=== PATIENT | male | born 1965 | race Caucasian/White ===

== ENCOUNTER 2018-06-24 16:25 | Emergency (ER) | payer BC ==
[2018-06-24 17:12] VITALS: BP 156/94
--- NOTE | 2018-06-24 17:46 | EDM.PDOC ---
ED HPI GENERAL MEDICAL PROBLEM - General Chief Complaint: General Stated Complaint: POSSIBLE STROKE? 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 He says he started giving the presentation and couldn't remember any of the material he had prepared, so he had to just read it from the screen. He now remembers the material better but still doesn't feel back to normal. After the presentation he ate a sandwich but still wasn't feeling quite right so he went home to rest. He slept at home but when his came home she insisted they come to ER. He tells me that his balance felt a little off and still doesn 't feel quite right and he feels like his speech is delayed. He feels like if he had to run he might not be able to due to balance. He takes a daily ASA 325 and took an extra one today. Five years ago he had a very similar event, also during a presentation to other principals, that was worked up in [place] and he was told he had a mini-stroke. His was not present at the presentation today but while in the ER they were able to call a colleague on speaker phone to get more information. The colleague stated that the entire 45 minutes speech seemed somewhat confusing and disorganized and that the patient repeated omer points 3-4 times as though they were the first time. He confirmed that there was no obvious droop or weakness observed and that patient was using both hands on the "clicker" equally well and recognized and called by name several of his colleagues during the presentation. - Related Data Allergies Allergy/AdvReac Type Severity Reaction Status Date / Time SEASONAL Allergy NKDA Uncoded 06/24/18 17:00 Home Meds: Home Meds metFORMIN HCl [Metformin HCl] 500 mg PO DAILY 06/26/15 [History] Aspirin 325 mg PO DAILY 07/04/16 [History] Multivitamin with Minerals [Multiple Vitamin] 1 tab PO DAILY 07/04/16 [History] Simvastatin [Zocor] 10 mg PO BEDTIME 07/04/16 [History] Past Medical History HEENT History: Reports: Impaired Vision Cardiovascular History: Reports: High Cholesterol Respiratory History: Reports: None Gastrointestinal History: Reports: None Musculoskeletal History: Reports: Fracture Neurological History: Reports: TIA Psychiatric History: Reports: None Endocrine/Metabolic History: Reports: Diabetes Mellitus, Type 3c Dermatologic History: Reports: Eczema - Infectious Disease History Infectious Disease History: Reports: Chicken Pox - Past Surgical History HEENT Surgical History: Reports: LASIK Cardiovascular Surgical History: Reports: None Respiratory Surgical History: Reports: None GI Surgical History: Reports: Colonoscopy Neurological Surgical History: Reports: None Dermatological Surgical History: Reports: None Social & Family History - Tobacco Use Smoking Status *Q: Never Smoker Second Hand Smoke Exposure: Yes - Caffeine Use Caffeine Use: Reports: Coffee, Soda - Recreational Drug Use Recreational Drug Use: No ED ROS GENERAL - Review of Systems Review Of Systems: See Below Constitutional: Denies: Fever, Chills, Malaise, Weakness HEENT: Denies: Ear Pain, Throat Swelling, Vision Change Respiratory: Reports: No Symptoms. Denies: Shortness of Breath Cardiovascular: Reports: No Symptoms, Lightheadedness (maybe but more just a vague off balance feeling). Denies: Chest Pain, Syncope Endocrine: Reports: No Symptoms. Denies: High Glucose (he does take metformin for pre-diabetes), Low Glucose GI/Abdominal: Reports: No Symptoms. Denies: Abdominal Pain, Vomiting : Reports: No Symptoms. Denies: Flank Pain Musculoskeletal: Reports: No Symptoms. Denies: Neck Pain, Shoulder Pain, Arm Pain, Back Pain Skin: Reports: No Symptoms. Denies: Cyanosis, Jaundice, Mottled, Pallor, Diaphoresis Neurological: Reports: Confusion, Tingling (slight in right arm), Trouble Speaking (he and his feel like his speech is slow but not slurred). Denies : Dizziness, Headache, Numbness, Seizure, Syncope, Tremors, Difficulty Walking, Weakness, Gait Disturbance Psychiatric: Reports: Confusion. Denies: Agitation, Anxiety Hematologic/Lymphatic: Denies: Easy Bleeding ED EXAM, GENERAL - Physical Exam Exam: See Below Exam Limited By: No Limitations General Appearance: Alert, WD/WN, No Apparent Distress Eye Exam: Bilateral Eye: EOMI, Normal Inspection (with full visual hill intact ), PERRL Ears: Normal External Exam, Hearing Grossly Normal Nose: Normal Inspection, No Blood Throat/Mouth: Normal Inspection, Normal Lips, Normal Teeth, Normal Voice, No Airway Compromise, Other (No facial droop or slurred speech) Head: Atraumatic, Normocephalic Neck: Normal Inspection, Supple, Non-Tender, Full Range of Motion. No: Carotid Bruit Respiratory/Chest: No Respiratory Distress, Lungs Clear, Normal Breath Sounds Cardiovascular: Regular Rate, Rhythm, No Edema, No Gallop, No JVD, No Murmur, No Rub Peripheral Pulses: 2+: Carotid (L), Carotid (R) GI/Abdominal: Normal Bowel Sounds, Soft, Non-Tender, No Organomegaly, No Distention Back Exam: Normal Inspection, Full Range of Motion Extremities: Normal Inspection, Normal Range of Motion, Non-Tender, No Pedal Edema, Other (full 5/5 symmetric strength of UE/LE) Neurological: Alert, Oriented, CN II-XII Intact, Normal Cognition, No Motor/ Sensory Deficits, Other (Negative Romberg; Normal NIH stroke scale: 0) Psychiatric: Normal Affect, Normal Mood Skin Exam: Warm, Dry, Intact, Normal Color, No Rash Course - Vital Signs Last Recorded V/S: Last Vital Signs Temp 96.9 F 06/24/18 16:53 Pulse 87 06/24/18 17:10 Resp 21 H 06/24/18 17:10 BP 156/94 H 06/24/18 17:10 Pulse Ox 96 06/24/18 16:53 - Orders/Labs/Meds Labs: Laboratory Tests 06/24/18 06/24/18 Range/Units 18:20 18:20 WBC 6.6 (5.0-10.0) 10^3/uL RBC 4.60 (4.50-6.00) 10^6/uL Hgb 14.1 (13.0-17.0) g/dL Hct 41.3 (40.0-52.0) % MCV 89.7 (82.0-92.0) fL MCH 30.7 (27.0-31.0) pg MCHC 34.3 (32.0-36.0) g/dL RDW 13.3 (11.5-14.5) % Plt Count 266 (150-300) 10^3/uL MPV 6.9 L (7.4-10.4) fL Neut % (Auto) 72.4 H (50.0-70.0) % Lymph % (Auto) 16.3 L (20.0-40.0) % Crisp % (Auto) 9.4 H (2.0-8.0) % Eos % (Auto) 1.8 (1.0-3.0) % Baso % (Auto) 0.1 (0.0-1.0) % Neut # (Auto) 4.8 (2.5-7.0) 10^3/uL Lymph # (Auto) 1.1 (1.0-4.0) 10^3/uL Crisp # (Auto) 0.6 (0.1-0.8) 10^3/uL Eos # (Auto) 0.1 (0.1-0.3) 10^3/uL Baso # (Auto) 0.0 (0.0-0.1) 10^3/uL Sodium 140 (136-145) mmol/L Potassium 4.0 (3.3-5.3) mmol/L Chloride 110 (98-115) mmol/L Carbon Dioxide 28.2 (21.0-32.0) mmol/L Anion Gap 5.8 (5-15) mmol/L BUN 11 (6-25) mg/dL Creatinine 0.81 (0.51-1.17) mg/dL Est Cr Clr Drug Dosing 121.21 mL/min Estimated GFR (MDRD) > 60 mL/min Glucose 101 mg/dL Calcium 8.2 L (8.7-10.3) mg/dL - Re-Assessments/Exams Free Text/Narrative Re-Assessment/Exam: 06/24/18 18:28 Discussed case in detail with Dr. Montgomery (neurologist at [facility]) who feels this is Transient Global Amnesia. He advises non-urgent out-patient follow up with neurology with observation tonight if patient felt anxious about going home. I discussed this with patient and he would prefer to go home and return if any changes. I feel this is reasonable as there are no abnormal findings on exam aside from patient's subjective feeling of slow thinking and speech as discussed with Dr. Montgomery. 06/24/18 18:52 Discussed findings and recommendations with patient and his . He feels he is slowly feeling closer to normal and he is discharged to home in stable condition. Departure - Departure Time of Disposition: 17:33 Disposition: Home, Self-Care 01 Condition: Good Clinical Impression: Transient global amnesia - Discharge Information Instructions: Transient Global Amnesia Referrals: PCP,None [Primary Care Provider] - Forms: ED Department Discharge Additional Instructions: 1. Follow up with neurology with in the next 1-2 weeks. I discussed this with Dr. Montgomery at [facility]. You can call them at [phone] to schedule an appointment. 2. Return to ER as needed.
[2018-06-24 18:42] LABS: ANION GAP 5.8 mmol/L (5-15); CHLORIDE,CL 110 mmol/L (98-115); SODIUM,NA 140 mmol/L (136-145)
== END 2018-06-24 19:00 | disposition home or self-care (01) ==
LOC: KA.ED 16:25
DX: G45.4 Transient global amnesia (principal); E11.9 Type 2 diabetes mellitus without complications; E78.00 Pure hypercholesterolemia, unspecified; Z91.048 Other nonmedicinal substance allergy status; Z79.84 Long term (current) use of oral hypoglycemic drugs; Z79.82 Long term (current) use of aspirin; Z79.899 Other long term (current) drug therapy
CPT/HCPCS: 36415; 80048; 85025; 99284

== ENCOUNTER 2020-11-13 22:13 | Observation (INO) | payer BC ==
[2020-11-13 23:06] LABS: CHLORIDE,CL 103 mmol/L (98-107); SODIUM,NA 141 mmol/L (136-145)
--- NOTE | 2020-11-13 23:11 | EDM.PDOC ---
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 Around 2100 he suddenly became confused and didn't know what to do. He doesn't remember much of today or yesterday. His says he had no weakness, slurred speach, facial droop or trouble walking. She says this is just like an episode he had 2 years ago that was diagnosed as Transient Global Amnesia. He had had a similar episode in 2012 that was at the time considered to be a TIA; nothing was abnormal on MRI at the time. EMS evaluated and found no deficits either, but is a little hypertensive and mildly tachycardic. 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 His says he was yelling at the referee quite a bit during the game. Treatments SCREEDMAN: Reports: See EMS Report - Related Data Allergies Allergy/AdvReac Type Severity Reaction Status Date / Time SEASONAL Allergy NKDA Uncoded 11/13/20 22:43 Home Meds: Home Meds metFORMIN HCl [Metformin HCl] 500 mg PO DAILY 06/26/15 [History] Aspirin 325 mg PO DAILY 07/04/16 [History] Multivitamin with Minerals [Multiple Vitamin] 1 tab PO DAILY 07/04/16 [History] Simvastatin [Zocor] 20 mg PO BEDTIME 07/04/16 [History] lisinopriL [Prinivil] 20 mg PO DAILY 11/13/20 [History] Past Medical History HEENT History: Reports: Impaired Vision Cardiovascular History: Reports: High Cholesterol Respiratory History: Reports: None Gastrointestinal History: Reports: None Musculoskeletal History: Reports: Fracture Neurological History: Reports: TIA Psychiatric History: Reports: None Endocrine/Metabolic History: Reports: Diabetes Mellitus, Type 3c Dermatologic History: Reports: Eczema - Infectious Disease History Infectious Disease History: Reports: Chicken Pox - Past Surgical History HEENT Surgical History: Reports: LASIK Cardiovascular Surgical History: Reports: None Respiratory Surgical History: Reports: None GI Surgical History: Reports: Colonoscopy Neurological Surgical History: Reports: None Dermatological Surgical History: Reports: None Social & Family History - Caffeine Use Caffeine Use: Reports: Coffee, Soda ED ROS GENERAL - Review of Systems Review Of Systems: See Below Constitutional: Denies: Fever, Chills, Weakness HEENT: Denies: Ear Pain, Eye Pain, Hearing Loss, Throat Pain, Vertigo, Vision Change Respiratory: Denies: Shortness of Breath, Cough Cardiovascular: Denies: Chest Pain, Lightheadedness, Syncope Endocrine: Denies: Fatigue GI/Abdominal: Denies: Abdominal Pain, Diarrhea, Vomiting : Denies: Dysuria, Flank Pain Musculoskeletal: Denies: Neck Pain, Shoulder Pain, Arm Pain, Back Pain, Hand Pain, Leg Pain Skin: Denies: Cyanosis, Jaundice, Mottled, Pallor, Diaphoresis Neurological: Reports: Confusion, Headache (slight). Denies: Dizziness, Numbnes s, Seizure, Syncope, Tingling, Trouble Speaking, Difficulty Walking Psychiatric: Reports: Confusion. Denies: Agitation, Anxiety Hematologic/Lymphatic: Denies: Anemia, Easy Bleeding - Physical Exam Exam: See Below Exam Limited By: Altered Mental Status General Appearance: Alert, WD/WN, No Apparent Distress Eye Exam: Bilateral Eye: EOMI, Normal Inspection (full visual hill bilat), PERRL Ears: Normal External Exam, Hearing Grossly Normal Nose: Normal Inspection, No Blood Throat/Mouth: Normal Inspection, Normal Lips, Normal Oropharynx, Normal Voice, No Airway Compromise Head Exam: Atraumatic, Normocephalic Neck: Normal Inspection, Full Range of Motion Respiratory/Chest: No Respiratory Distress, Lungs Clear, Normal Breath Sounds, No Accessory Muscle Use Cardiovascular: Normal Peripheral Pulses, Regular Rate, Rhythm, No Edema, No Murmur GI/Abdominal: Normal Bowel Sounds, Soft, Non-Tender, No Organomegaly, No Distention Neuro Exam (Abbreviated): Alert, Oriented, CN II-XII Intact, Memory Loss Recent Events. No: Memory Loss Remote Events Back Exam: Normal Inspection, Full Range of Motion Extremities: Normal Inspection, Normal Range of Motion, Other (5/5 symmetric strength of upper and lower extremities, dorsiflexion/plantar flexion. Distal CMS intact.) Psychiatric: Normal Affect, Normal Mood Skin Exam: Warm, Dry, Intact, Normal Color, No Rash Course - Vital Signs Last Recorded V/S: Last Vital Signs Temp 98.8 F 11/13/20 22:15 Pulse 102 H 11/13/20 23:16 Resp 13 11/13/20 23:16 BP 180/115 H 11/13/20 23:16 Pulse Ox 98 11/13/20 23:16 - Orders/Labs/Meds Orders: Active Orders 24 hr Category Date Time Status Patient Status Manage Transfer [TRANSFER] Routine ADT 11/14/20 00:10 Ordered Patient Status [ADT] Routine ADT 11/14/20 00:08 Active EKG Documentation Completion [RC] ASDIRECTED Care 11/13/20 22:50 Active NIH Stroke Scale [RC] ASDIRECTED Care 11/13/20 22:25 Active Neuro Check [RC] BID Care 11/13/20 23:03 Active Head wo Cont [CT] Stat Exams 11/13/20 22:23 Ordered Sodium Chloride 0.9% [Normal Saline] 50 ml Med 11/13/20 23:48 Active IV ASDIRECTED EKG 12 Lead [EK] Stat Ther 11/13/20 22:40 Ordered Medication Orders Sodium Chloride (Normal Saline) 50 mls @ 150 mls/hr IV ASDIRECTED DAILY Labs: Laboratory Tests 11/13/20 11/13/20 11/13/20 Range/Units 22:35 22:35 22:35 WBC 8.96 (5.00-10.00) 10^3/uL RBC 4.71 (4.50-6.00) 10^6/uL Hgb 14.3 (13.0-17.0) g/dL Hct 43.0 (40.0-52.0) % MCV 91.3 (82.0-92.0) fL MCH 30.4 (27.0-31.0) pg MCHC 33.3 (32.0-36.0) g/dL RDW 13.9 (11.5-14.5) % Plt Count 249 (150-400) 10^3/uL MPV 10.0 (7.4-10.4) fL Immature Gran % (Auto) 0.1 (0.0-5.0) % Neut % (Auto) 86.4 H (50.0-70.0) % Lymph % (Auto) 7.7 L (20.0-40.0) % Douglas % (Auto) 5.4 (2.0-8.0) % Eos % (Auto) 0.2 L (1.0-3.0) % Baso % (Auto) 0.2 (0.0-1.0) % Neut # (Auto) 7.74 H (2.50-7.00) 10^3/uL Lymph # (Auto) 0.69 L (1.00-4.00) 10^3/uL Douglas # (Auto) 0.48 (0.10-0.80) 10^3/uL Eos # (Auto) 0.02 L (0.10-0.30) 10^3/uL Baso # (Auto) 0.02 (0.00-0.10) 10^3/uL Immature Gran # (Auto) 0.01 (0.00-0.50) 10^3/uL PT 10.3 (9.2-11.2) SEC INR 1.0 (0.9-1.1) APTT 29.1 (22.8-31.4) SEC Sodium (136-145) mmol/L Potassium (3.5-5.1) mmol/L Chloride (98-107) mmol/L Carbon Dioxide (21.0-32.0) mmol/L Anion Gap (5-15) mmol/L BUN (7-18) mg/dL Creatinine (0.51-1.17) mg/dL Est Cr Clr Drug Dosing mL/min Estimated GFR (MDRD) mL/min Glucose (70-140) mg/dL Calcium (8.7-10.3) mg/dL Total Bilirubin (0.2-1.0) mg/dL AST (15-37) U/L ALT (14-63) U/L Alkaline Phosphatase (46-116) U/L Total Protein (6.4-8.2) g/dL Albumin (3.40-5.00) g/dL Specimen Type Urinvoid Urine Color Yellow (YELLOW) Urine Appearance Clear (CLEAR) Urine pH 7.0 (5.0-9.0) Ur Specific [place] 1.020 (1.005-1.030) Urine Protein Negative (NEGATIVE) mg/dL Urine Glucose (UA) Negative (NEGATIVE) mg/dL Urine Ketones Trace H (NEGATIVE) mg/dL Urine Occult Blood Negative (NEGATIVE) Urine Nitrite Negative (NEGATIVE) Urine Bilirubin Negative (NEGATIVE) Urine Urobilinogen 0.2 (0.2-1.0) E.U./dL Ur Leukocyte Esterase Negative (NEGATIVE) SARS CoV-2 RNA Rapid WINSTON (NEGATIVE) 11/13/20 11/13/20 Range/Units 22:35 23:30 WBC (5.00-10.00) 10^3/uL RBC (4.50-6.00) 10^6/uL Hgb (13.0-17.0) g/dL Hct (40.0-52.0) % MCV (82.0-92.0) fL MCH (27.0-31.0) pg MCHC (32.0-36.0) g/dL RDW (11.5-14.5) % Plt Count (150-400) 10^3/uL MPV (7.4-10.4) fL Immature Gran % (Auto) (0.0-5.0) % Neut % (Auto) (50.0-70.0) % Lymph % (Auto) (20.0-40.0) % Douglas % (Auto) (2.0-8.0) % Eos % (Auto) (1.0-3.0) % Baso % (Auto) (0.0-1.0) % Neut # (Auto) (2.50-7.00) 10^3/uL Lymph # (Auto) (1.00-4.00) 10^3/uL Douglas # (Auto) (0.10-0.80) 10^3/uL Eos # (Auto) (0.10-0.30) 10^3/uL Baso # (Auto) (0.00-0.10) 10^3/uL Immature Gran # (Auto) (0.00-0.50) 10^3/uL PT (9.2-11.2) SEC INR (0.9-1.1) APTT (22.8-31.4) SEC Sodium 141 (136-145) mmol/L Potassium 4.2 (3.5-5.1) mmol/L Chloride 103 (98-107) mmol/L Carbon Dioxide 26.2 (21.0-32.0) mmol/L Anion Gap 16.0 H (5-15) mmol/L BUN 14 (7-18) mg/dL Creatinine 0.90 (0.51-1.17) mg/dL Est Cr Clr Drug Dosing 106.56 mL/min Estimated GFR (MDRD) > 60 mL/min Glucose 130 (70-140) mg/dL Calcium 9.2 (8.7-10.3) mg/dL Total Bilirubin 0.6 (0.2-1.0) mg/dL AST 17 (15-37) U/L ALT 28 (14-63) U/L Alkaline Phosphatase 83 (46-116) U/L Total Protein 7.5 (6.4-8.2) g/dL Albumin 4.14 (3.40-5.00) g/dL Specimen Type Urine Color (YELLOW) Urine Appearance (CLEAR) Urine pH (5.0-9.0) Ur Specific [place]field (1.005-1.030) Urine Protein (NEGATIVE) mg/dL Urine Glucose (UA) (NEGATIVE) mg/dL Urine Ketones (NEGATIVE) mg/dL Urine Occult Blood (NEGATIVE) Urine Nitrite (NEGATIVE) Urine Bilirubin (NEGATIVE) Urine Urobilinogen (0.2-1.0) E.U./dL Ur Leukocyte Esterase (NEGATIVE) SARS CoV-2 RNA Rapid WINSTON Positive H (NEGATIVE) Meds: Medications Generic Name Dose Route Start Last Admin Trade Name Freq PRN Reason Stop Dose Admin Sodium Chloride 50 mls @ 150 mls/hr 11/13/20 23:48 Normal Saline IV ASDIRECTED DAILY Discontinued Medications Generic Name Dose Route Start Last Admin Trade Name Freq PRN Reason Stop Dose Admin Thiamine HCl 500 mg/ Sodium 105 mls @ 210 mls/hr 11/13/20 23:22 11/13/20 23:54 Chloride IV 11/13/20 23:23 210 mls/hr ONETIME ONE Administration Sodium Chloride Confirm 11/13/20 23:48 11/14/20 00:07 Normal Saline Administered 11/13/20 23:49 Not Given Dose 50 mls @ as directed .ROUTE .STK-MED ONE Lisinopril 20 mg 11/14/20 00:07 Prinivil PO 11/14/20 00:08 ONETIME ONE - Re-Assessments/Exams Free Text/Narrative Re-Assessment/Exam: 11/13/20 23:[address] shows no acute pathology but notes a subtle loss of mariee-white matter differentiation in left occipital lobe that could be a subacute infarct. Suggests MRI for further evaluation. Labs are mostly WNL but Covid is positive. We ran it when we knew we would keep him in observation. His anterograde amnesia is still evident as he performed the NIHSS flawlessly but 15 minutes later doesn't remember it at all; he also doesn't remember coming to ER or getting the CT scan. He doesn't remember any details of the game but knows he had a game tonight. I reviewed UpToDate and will give Thiamine 500 mg IV as recommended and observe until the amnesia resolves. I discussed findings and recommendations with patient and his who agree with plan. I discussed case with Benjy Moran NP who accepted for observation. He can do the MRI here on if desired. I reviewed the notes from last time he was here with this as well as the neurology followup. All three episodes occurred while he was in a relatively stressful situation which could be triggering it. He is still repeating questions and not developing memories but is otherwise neurologically completely normal. Stable at admission. 11/14/20 00:08 Blood pressure is remaining elevated so will give an extra dose of his usual Lisinopril 20 mg qd. Departure - Departure Time of Disposition: 23:54 Disposition: Refer to Observation Condition: Good Clinical Impression: TGA (transient global amnesia), COVID-19 - Discharge Information Referrals: Lucita Oleary NP [Primary Care Provider] - Sepsis Event Note (ED) - Evaluation Sepsis Screening Result: No Definite Risk - Focused Exam Vital Signs: Vital Signs Temp Pulse Resp BP Pulse Ox 11/13/20 23:16 102 H 13 180/115 H 98 11/13/20 23:00 100 15 162/116 H 95 11/13/20 22:45 104 H 17 178/112 H 94 L 11/13/20 22:30 102 H 19 157/118 H 95 11/13/20 22:15 98.8 F 102 H 17 179/109 H 97 - My Orders Last 24 Hours: My Active Orders 11/13/20 22:23 Head wo Cont [CT] Stat 11/13/20 22:25 NIH Stroke Scale [RC] ASDIRECTED 11/13/20 22:40 EKG 12 Lead [EK] Stat 11/13/20 22:50 EKG Documentation Completion [RC] ASDIRECTED 11/13/20 23:03 Neuro Check [RC] BID 11/13/20 23:48 Sodium Chloride 0.9% [Normal Saline] 50 ml IV ASDIRECTED 11/14/20 00:08 Patient Status [ADT] Routine 11/14/20 00:10 Patient Status Manage Transfer [TRANSFER] Routine - Assessment/Plan Last 24 Hours: My Active Orders 11/13/20 22:23 Head wo Cont [CT] Stat 11/13/20 22:25 NIH Stroke Scale [RC] ASDIRECTED 11/13/20 22:40 EKG 12 Lead [EK] Stat 11/13/20 22:50 EKG Documentation Completion [RC] ASDIRECTED 11/13/20 23:03 Neuro Check [RC] BID 11/13/20 23:48 Sodium Chloride 0.9% [Normal Saline] 50 ml IV ASDIRECTED 11/14/20 00:08 Patient Status [ADT] Routine 11/14/20 00:10 Patient Status Manage Transfer [TRANSFER] Routine
[2020-11-13 23:16] LABS: PTT,PARTIAL THROMBOPLSTIN TIME 29.1 SEC (22.8-31.4)
[2020-11-13] MEDS ORDERED: Sodium Chloride 0.9% 50 ML IV SCH (23:48)
[2020-11-13] MEDS: Thiamine 500 MG in Sodium Chloride 0.9% 100 ML IV ONE (23:54)
[2020-11-14] MEDS: Sodium Chloride 0.9% 50 ML ONE (00:07)
[2020-11-14] MEDS: Lisinopril 10 MG Tab PO ONE (00:19)
--- NOTE | 2020-11-14 07:33 | CT ---
[id number] CT/CT Head WO IV EXAM: CT Head WO IV CLINICAL DATA: CHANGE IN MENTAL STATUS COMPARISON: CORRELATION IS MADE WITH THE MRI OF AUGUST 30, 2012 FINDINGS: There is no mass or mass effect. There is no hemorrhage or hydrocephalus. There are no extra-axial fluid collections. There are no sites of abnormal attenuation. IMPRESSION: NO PLAIN CT EVIDENCE OF ACUTE INTRACRANIAL PROCESS. CONSIDER MRI IF SYMPTOMS PERSIST Ariel Kennedy MD 11/14/20 0732 Thank you for allowing us to participate in the care of your patient.
--- NOTE | 2020-11-14 08:57 | PCM.HP.2 ---
H&P History of Present Illness - General Date of Service: 11/14/20 Admit Problem/Dx: Admission Diagnosis/Problem Admission Diagnosis/Problem Transient global amnesia - Related Data Allergies/Adverse Reactions: Allergies Allergy/AdvReac Type Severity Reaction Status Date / Time SEASONAL Allergy NKDA Uncoded 11/14/20 01:14 Home Medications: Home Meds metFORMIN HCl [Metformin HCl] 500 mg PO DAILY 06/26/15 [History] Aspirin 325 mg PO DAILY 07/04/16 [History] Multivitamin with Minerals [Multiple Vitamin] 1 tab PO DAILY 07/04/16 [History] Simvastatin [Zocor] 20 mg PO BEDTIME 07/04/16 [History] lisinopriL [Prinivil] 20 mg PO DAILY 11/13/20 [History] Past Medical History HEENT History: Reports: Impaired Vision Cardiovascular History: Reports: High Cholesterol, Hypertension Respiratory History: Reports: None Gastrointestinal History: Reports: None Musculoskeletal History: Reports: Fracture Neurological History: Reports: TIA, Other (See Below) Other Neuro History: Transient Global Amnesia Psychiatric History: Reports: None Endocrine/Metabolic History: Reports: Diabetes Mellitus, Type 3c, Obesity/BMI 30+ Dermatologic History: Reports: Eczema - Infectious Disease History Infectious Disease History: Reports: Chicken Pox - Past Surgical History HEENT Surgical History: Reports: LASIK Cardiovascular Surgical History: Reports: None Respiratory Surgical History: Reports: None GI Surgical History: Reports: Colonoscopy Neurological Surgical History: Reports: None Musculoskeletal Surgical History: Reports: Arthroscopic Knee Other Musculoskeletal Surgeries/Procedures:: Left knee arthroscopy with debridement medial meniscus tear (08/22/20) Dermatological Surgical History: Reports: None Social & Family History - Family History Family Medical History: No Pertinent Family History - Tobacco Use Tobacco Use Status *Q: Never Tobacco User - Caffeine Use Caffeine Use: Reports: Coffee, Soda Other Caffeine Use: capucchino - Recreational Drug Use Recreational Drug Use: No H&P Review of Systems - Review of Systems: Review Of Systems: See Below General: Reports: No Symptoms HEENT: Reports: No Symptoms Pulmonary: Reports: No Symptoms Cardiovascular: Reports: No Symptoms Gastrointestinal: Reports: No Symptoms Genitourinary: Reports: No Symptoms Musculoskeletal: Reports: No Symptoms Skin: Reports: No Symptoms Psychiatric: Reports: No Symptoms Neurological: Reports: Confusion, Other (Some fogginess about yesterday's events). Denies: Headache, Numbness, Seizure, Trouble Speaking, Weakness, Change in Speech, Gait Disturbance Hematologic/Lymphatic: Reports: No Symptoms Immunologic: Reports: No Symptoms Exam - Exam Exam: See Below - Vital Signs Vital Signs: Last Vital Signs Temp 98.9 F 11/14/20 06:24 Pulse 90 11/14/20 06:24 Resp 17 11/14/20 06:24 BP 119/85 11/14/20 06:24 Pulse Ox 95 11/14/20 06:24 Weight: 262 lb 11.2 oz - Exam General: Alert, Oriented, Cooperative, Mild Distress HEENT: PERRLA, Hearing Intact, Mucosa Moist & [place], Nares Patent, Normal Nasal Septum, Posterior Pharynx Clear, Conjunctiva Clear, EOMI, EACs Clear, TMs Clear Neck: Supple, Trachea Midline, 2 Lungs: Clear to Auscultation, Normal Respiratory Effort Cardiovascular: Regular Rate, Regular Rhythm GI/Abdominal Exam: Normal Bowel Sounds, Soft, Non-Tender, No Organomegaly, No Distention, No Abnormal Bruit, No Mass, Pelvis Stable Rectal (Males) Exam: Deferred Back Exam: No: CVA Tenderness (L), CVA Tenderness (R) Extremities: No Pedal Edema Peripheral Pulses: 2+: Carotid (L), Carotid (R), Radial (L), Radial (R) Skin: Warm, Dry, Intact Neurological: Cranial Nerves Intact, Normal Speech, Normal Tone, Sensation Intact. No: Focal Deficit Neuro Extensive - Mental Status: Alert, Oriented x3, Memory Loss-Remote Events. No: Memory Intact, Disorientation to Person, Disorientation to Place, Disorien tation to Time Neuro Extensive - Motor, Sensory, Reflexes: CN II-XII Intact (Able to smell). No: Dysarthria, Receptive Aphasia, Expressive Aphasia, Total Aphasia, Pronator Drift (R), Pronator Drift (L), Abnormal Finger to Nose, Abnormal Heel to [place], Abnormal Light Touch, Motor/Sensory Deficits Psychiatric: Alert, Normal Affect, Normal Mood - Patient Data Lab Results Last 24 hrs: Laboratory Results - last 24 hr 11/13/20 11/13/20 11/13/20 Range/Units 22:35 22:35 22:35 WBC 8.96 (5.00-10.00) 10^3/uL RBC 4.71 (4.50-6.00) 10^6/uL Hgb 14.3 (13.0-17.0) g/dL Hct 43.0 (40.0-52.0) % MCV 91.3 (82.0-92.0) fL MCH 30.4 (27.0-31.0) pg MCHC 33.3 (32.0-36.0) g/dL RDW 13.9 (11.5-14.5) % Plt Count 249 (150-400) 10^3/uL MPV 10.0 (7.4-10.4) fL Immature Gran % (Auto) 0.1 (0.0-5.0) % Neut % (Auto) 86.4 H (50.0-70.0) % Lymph % (Auto) 7.7 L (20.0-40.0) % [place] % (Auto) 5.4 (2.0-8.0) % Eos % (Auto) 0.2 L (1.0-3.0) % Baso % (Auto) 0.2 (0.0-1.0) % Neut # (Auto) 7.74 H (2.50-7.00) 10^3/uL Lymph # (Auto) 0.69 L (1.00-4.00) 10^3/uL [place] # (Auto) 0.48 (0.10-0.80) 10^3/uL Eos # (Auto) 0.02 L (0.10-0.30) 10^3/uL Baso # (Auto) 0.02 (0.00-0.10) 10^3/uL Immature Gran # (Auto) 0.01 (0.00-0.50) 10^3/uL PT 10.3 (9.2-11.2) SEC INR 1.0 (0.9-1.1) APTT 29.1 (22.8-31.4) SEC Sodium (136-145) mmol/L Potassium (3.5-5.1) mmol/L Chloride (98-107) mmol/L Carbon Dioxide (21.0-32.0) mmol/L Anion Gap (5-15) mmol/L BUN (7-18) mg/dL Creatinine (0.51-1.17) mg/dL Est Cr Clr Drug Dosing mL/min Estimated GFR (MDRD) mL/min Glucose (70-140) mg/dL Calcium (8.7-10.3) mg/dL Total Bilirubin (0.2-1.0) mg/dL AST (15-37) U/L ALT (14-63) U/L Alkaline Phosphatase (46-116) U/L Total Protein (6.4-8.2) g/dL Albumin (3.40-5.00) g/dL Specimen Type Urinvoid Urine Color Yellow (YELLOW) Urine Appearance Clear (CLEAR) Urine pH 7.0 (5.0-9.0) Ur Specific [place] 1.020 (1.005-1.030) Urine Protein Negative (NEGATIVE) mg/dL Urine Glucose (UA) Negative (NEGATIVE) mg/dL Urine Ketones Trace H (NEGATIVE) mg/dL Urine Occult Blood Negative (NEGATIVE) Urine Nitrite Negative (NEGATIVE) Urine Bilirubin Negative (NEGATIVE) Urine Urobilinogen 0.2 (0.2-1.0) E.U./dL Ur Leukocyte Esterase Negative (NEGATIVE) SARS CoV-2 RNA Rapid WINSTON (NEGATIVE) 11/13/20 11/13/20 Range/Units 22:35 23:30 WBC (5.00-10.00) 10^3/uL RBC (4.50-6.00) 10^6/uL Hgb (13.0-17.0) g/dL Hct (40.0-52.0) % MCV (82.0-92.0) fL MCH (27.0-31.0) pg MCHC (32.0-36.0) g/dL RDW (11.5-14.5) % Plt Count (150-400) 10^3/uL MPV (7.4-10.4) fL Immature Gran % (Auto) (0.0-5.0) % Neut % (Auto) (50.0-70.0) % Lymph % (Auto) (20.0-40.0) % [place] % (Auto) (2.0-8.0) % Eos % (Auto) (1.0-3.0) % Baso % (Auto) (0.0-1.0) % Neut # (Auto) (2.50-7.00) 10^3/uL Lymph # (Auto) (1.00-4.00) 10^3/uL [place] # (Auto) (0.10-0.80) 10^3/uL Eos # (Auto) (0.10-0.30) 10^3/uL Baso # (Auto) (0.00-0.10) 10^3/uL Immature Gran # (Auto) (0.00-0.50) 10^3/uL PT (9.2-11.2) SEC INR (0.9-1.1) APTT (22.8-31.4) SEC Sodium 141 (136-145) mmol/L Potassium 4.2 (3.5-5.1) mmol/L Chloride 103 (98-107) mmol/L Carbon Dioxide 26.2 (21.0-32.0) mmol/L Anion Gap 16.0 H (5-15) mmol/L BUN 14 (7-18) mg/dL Creatinine 0.90 (0.51-1.17) mg/dL Est Cr Clr Drug Dosing 106.56 mL/min Estimated GFR (MDRD) > 60 mL/min Glucose 130 (70-140) mg/dL Calcium 9.2 (8.7-10.3) mg/dL Total Bilirubin 0.6 (0.2-1.0) mg/dL AST 17 (15-37) U/L ALT 28 (14-63) U/L Alkaline Phosphatase 83 (46-116) U/L Total Protein 7.5 (6.4-8.2) g/dL Albumin 4.14 (3.40-5.00) g/dL Specimen Type Urine Color (YELLOW) Urine Appearance (CLEAR) Urine pH (5.0-9.0) Ur Specific [place] (1.005-1.030) Urine Protein (NEGATIVE) mg/dL Urine Glucose (UA) (NEGATIVE) mg/dL Urine Ketones (NEGATIVE) mg/dL Urine Occult Blood (NEGATIVE) Urine Nitrite (NEGATIVE) Urine Bilirubin (NEGATIVE) Urine Urobilinogen (0.2-1.0) E.U./dL Ur Leukocyte Esterase (NEGATIVE) SARS CoV-2 RNA Rapid [place] Positive H (NEGATIVE) Result Diagrams: 11/13/20 22:35 11/13/20 22:35 Sepsis Event Note - Evaluation Sepsis Screening Result: No Definite Risk - Focused Exam Vital Signs: Vital Signs Temp Pulse Resp BP BP BP Pulse Ox 11/14/20 06:24 98.9 F 90 17 119/85 95 11/14/20 02:37 98.8 F 94 17 145/83 H 96 11/14/20 01:30 98.7 F 101 H 16 171/107 H 97 11/14/20 00:45 100 15 174/107 H 96 11/14/20 00:30 106 H 14 165/115 H 95 11/14/20 00:19 161/111 H 11/14/20 00:15 105 H 14 161/111 H 95 11/14/20 00:00 100 18 156/108 H 97 11/13/20 23:45 102 H 11 L 178/111 H 97 11/13/20 23:30 102 H 19 185/125 H 96 11/13/20 23:16 102 H 13 180/115 H 98 11/13/20 23:00 100 15 162/116 H 95 11/13/20 22:45 104 H 17 178/112 H 94 L 11/13/20 22:30 102 H 19 157/118 H 95 11/13/20 22:15 98.8 F 102 H 17 179/109 H 97 Problem List Initiated/Reviewed/Updated: Yes Orders Last 24hrs: Active Orders 24 hr Category Date Time Status Neuro Check [RC] Q4HR Care 11/13/20 23:03 Active Nurse Communication: Isolation [RC] ASDIRECTED Care 11/14/20 01:33 Active Regular Diet [DIET] Diet 11/14/20 Breakfast Active Multivitamin with Minerals [Multiple Vitamin] Med 11/14/20 09:00 Ordered 1 tab PO DAILY Simvastatin [Zocor] Med 11/14/20 21:00 Ordered 20 mg PO BEDTIME Sodium Chloride 0.9% [Normal Saline] 50 ml Med 11/13/20 23:48 Active IV ASDIRECTED lisinopriL [Prinivil] Med 11/14/20 09:00 Ordered 20 mg PO DAILY metFORMIN [Glucophage] Med 11/14/20 09:00 Ordered 500 mg PO DAILY Isolation [COMM] Routine Oth 11/14/20 01:33 Ordered Resuscitation Status Routine Resus Stat 11/14/20 01:09 Ordered EKG 12 Lead [EK] Stat Ther 11/13/20 22:40 Stop Req Medication Orders Sodium Chloride (Normal Saline) 50 mls @ 150 mls/hr IV ASDIRECTED DAILY Lisinopril (Prinivil) 20 mg PO DAILY DAILY Metformin HCl (Glucophage) 500 mg PO DAILY DAILY Non-Formulary Medication (Multivitamin With Minerals [Multiple Vitamin]) 1 tab PO DAILY DAILY Simvastatin (Zocor) 20 mg PO BEDTIME DAILY Assessment/Plan Comment:: Please use this H&P as a combined discharge summary as patient was evaluated and discharged same day History of present illness Mr Turner 55-year-old pleasant gentleman that was admitted into observation last night due to symptoms highly suggestive of Global Amnesia. 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 Around 2099 he suddenly became confused and didn't know what to do. The ED he d id not recall many of the days events or prior day's events . His spouse reported no symptoms of CVA such as difficulty walking, facial drooping, weakness, however she did denote his history of transient global amnesia twice in the past the most recent ~2 years ago. He was evaluated extensively by neurology with no definitive treatment plans other than monitoring. Prior to these 2 events he had a similar episode in 2013 at which time it was considered a TIA and had a normal MRI at that time. 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 Pertinent ED findings Head CT, no acute pathology however ED provider reported 'subtle loss of mariee- white matter differentiation in left occipital lobe that could be a subacute infarct' BP 174/109--extra MINH inhibitor given HR 102 Covid -19 Pos Afebrile Chemistry normal, Exam: antegrade amnesia MRA neck 2018; both common carotid and internal carotid arteries are normal. MRA head, 2018; Negative MRA of the head. 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 Does not remember coming into the ED via ambulance other than what he was told. Able to give very good recall of previous events of when this happened. Thiamine was given on admission 2/2 concern of Dysmnesic syndromes. Although positive for Covid-19 denies any cough shortness of breath loss of taste or smell no URI, no nasal congestion no nausea vomiting or diarrhea. Exam; alert and oriented x3, Good attention and orientation, very good digital span memory, immediate recall and [place] sentencing, normal serial sevens and doubling threes, has excellent abstract thought. CN I-XII intact including ol factory Final diagnosis --Transient Global Amnesia Chronic/stable conditions Prediabetes, low-dose Metformin, A1c 5.6% Hyperlipidemia, dose statin Hypertension, improved received extra MINH inhibitor on admission Disposition --Patient strongly desires to go home, based off of history and exam and diagnostic information I feel he is to return home as long as no cooking driving and would be in the company of others however isolation at home due to COVID-19. Need MRI however would not be able to perform while in isolation per MRI protocol --May return to work on November 26 however if you become symptomatic with Covid your return to work date may change: 10 days since symptoms first appeared AND 24 hours with no fever without the use of fever reducing medications AND other symptoms of COVID-19 are improving Medication changes/adjustments upon discharge --No changes Follow-up Lucita Oleary [facility] MRI ordered [facility] Neurology consultation ordered through [facility] Monitor BP no changes in medications Verify ASA history - Mortality Measure Prognosis:: Good
[2020-11-14] MEDS: metFORMIN 500 MG Tab PO SCH (10:12)
[2020-11-14] MEDS: Lisinopril 20 MG Tab PO SCH (10:12)
[2020-11-14] MEDS: Multivitamins with Minerals/Iron/Folic Acid/Lycopene Tab PO SCH (10:19)
[2020-11-14] MEDS: METFORMIN 500 MG PO SCH (10:20)
[2020-11-14] MEDS: LISINOPRIL 20 MG PO SCH (10:20)
[2020-11-14 10:21] VITALS: BP 146/98; PULSE 91
[2020-11-14] MEDS ORDERED: SIMVASTATIN 20 MG PO SCH (21:00)
== END 2020-11-14 12:30 | disposition home or self-care (01) ==
LOC: KA.ED 22:13 → UNDOADMOB 23:50 → KA.MS 23:50
PROVIDERS: ADMIT Family Medicine; ATTEND Family Medicine
DX: G45.4 Transient global amnesia (principal); U07.1 COVID-19; E78.00 Pure hypercholesterolemia, unspecified; I10 Essential (primary) hypertension; E11.9 Type 2 diabetes mellitus without complications; E66.9 Obesity, unspecified; Z79.82 Long term (current) use of aspirin; Z86.73 Personal history of transient ischemic attack (TIA), and cerebral infarction without residual deficits; Z79.899 Other long term (current) drug therapy; Z79.84 Long term (current) use of oral hypoglycemic drugs; Z68.33 Body mass index [BMI] 33.0-33.9, adult
CPT/HCPCS: 36415; 70450; 80053; 81003; 85025; 85610; 85730; 93005; 96365; 99284; 99285-25; A9270-GY; G0378; J3411; U0002